=== PATIENT | female | born 1950 | race Caucasian/White ===

== ENCOUNTER 2017-09-04 21:18 | Emergency (ER) | payer MEDICARE, BC ==
--- NOTE | 2017-09-04 22:15 | EDM.PDOC ---
ED HPI GENERAL MEDICAL PROBLEM - General Chief Complaint: Genitourinary Problem Stated Complaint: POSSIBLE UTI Time Seen by Provider: 09/04/17 21:19 Source of Information: Reports: Patient History Limitations: Reports: No Limitations - History of Present Illness INITIAL COMMENTS - FREE TEXT/NARRATIVE: bladder infection; reports pain, urgency, and bladder spasms for the 2 days. last bladder infection was 3 years ago. denies fever or chills. Onset: Gradual Duration: Day(s): (2) Location: Reports: Abdomen Quality: Reports: Same as Previous Episode Improves with: Reports: None Worsens with: Reports: None Associated Symptoms: Reports: Other (dysuria) Bladder Pain Score (Numeric/FACES): 4 - Related Data Allergies Allergy/AdvReac Type Severity Reaction Status Date / Time sulfur Allergy unknown Uncoded 09/04/17 21:33 Home Meds: Home Meds Alendronate [Fosamax] 70 mg PO WEEKLY 09/04/17 [History] Citalopram [Citalopram HBr] 20 mg PO DAILY 09/04/17 [History] Levothyroxine [Sythroid] 100 mcg PO DAILY 09/04/17 [History] Lisinopril 10 mg PO DAILY 09/04/17 [History] Methadone 40 mg PO BID 09/04/17 [History] Simvastatin [Zocor] 40 mg PO BEDTIME 09/04/17 [History] Past Medical History HEENT History: Reports: Impaired Vision Cardiovascular History: Reports: High Cholesterol, Hypertension Genitourinary History: Reports: Other (See Below) Other Genitourinary History: chronic cystitis [employer] History: Reports: Endometriosis, Polycystic Ovaries, Musculoskeletal History: Reports: Arthritis Psychiatric History: Reports: Depression Endocrine/Metabolic History: Reports: Hypothyroidism Dermatologic History: Reports: Eczema - Past Surgical History Female Surgical History: Reports: Hysterectomy, Suprapubic Catheter Placement Social & Family History - Tobacco Use Smoking Status *Q: Never Smoker - Caffeine Use Caffeine Use: Reports: None - Recreational Drug Use Recreational Drug Use: No ED ROS GENERAL - Review of Systems Review Of Systems: See Below Constitutional: Reports: Other (dysuria,) HEENT: Reports: No Symptoms Respiratory: Reports: No Symptoms Cardiovascular: Reports: No Symptoms Endocrine: Reports: No Symptoms GI/Abdominal: Reports: Abdominal Pain : Reports: Dysuria, Frequency, Pain, Urgency Musculoskeletal: Reports: No Symptoms Skin: Reports: No Symptoms Neurological: Reports: No Symptoms Psychiatric: Reports: No Symptoms Hematologic/Lymphatic: Reports: No Symptoms Immunologic: Reports: No Symptoms ED EXAM, GI/ABD - Physical Exam Exam: See Below Exam Limited By: No Limitations General Appearance: Alert, WD/WN, No Apparent Distress Neck: Normal Inspection, Supple Respiratory/Chest: No Respiratory Distress, Lungs Clear, Normal Breath Sounds, No Accessory Muscle Use, Chest Non-Tender Cardiovascular: Regular Rate, Rhythm, No Murmur GI/Abdominal Exam: Normal Bowel Sounds, Soft, Other (pain in pelvis) (Female) Exam: Deferred Rectal (Female) Exam: Deferred Back Exam: Normal Inspection, Full Range of Motion Extremities: Normal Inspection Neurological: Alert, No Motor/Sensory Deficits Psychiatric: Normal Affect, Normal Mood Skin Exam: Warm, Dry, Intact, Normal Color, No Rash Lymphatic: No Adenopathy Course - Vital Signs Last Recorded V/S: Last Vital Signs Temp 36.7 C 09/04/17 21:31 Pulse 66 09/04/17 21:31 Resp 18 09/04/17 21:31 BP 161/68 H 09/04/17 21:31 Pulse Ox 98 09/04/17 21:31 - Orders/Labs/Meds Orders: Active Orders 24 hr Category Date Time Status UA W/MICROSCOPIC [URIN] Urgent Lab 09/04/17 21:24 Ordered Labs: Laboratory Tests 09/04/17 Range/Units 21:24 Urine Color Yellow Urine Appearance Slightly cloudy Urine pH 7.0 (4.5-8.0) Ur Specific [place] 1.010 (1.008-1.030) Urine Protein Negative (NEGATIVE) mg/dL Urine Glucose (UA) Normal (NEGATIVE) mg/dL Urine Ketones Negative (NEGATIVE) mg/dL Urine Occult Blood Large (NEGATIVE) Urine Nitrite Negative (NEGATIVE) Urine Bilirubin Negative (NEGATIVE) Urine Urobilinogen Normal (NORMAL) mg/dL Ur Leukocyte Esterase Large (NEGATIVE) Urine RBC 5-10 H (0-5) Urine WBC 30-40 H (0-5) Ur Epithelial Cells Moderate Amorphous Sediment Not seen Urine Bacteria Many Urine Mucus Not seen Departure - Departure Time of Disposition: 22:20 Disposition: Home, Self-Care 01 Condition: Good Clinical Impression: UTI, Urinary tract infectious disease - Discharge Information Instructions: Urinary Tract Infection, Adult, [id number] Referrals: Rosales Oliver MD [Primary Care Provider] - Forms: ED Department Discharge Care Plan Goals: Urinary Tract Infection -start tonight: Keflex 500mg one in morning and evening til gone -start tonight: Pyrdium 200mg every 8 hours as needed for bladder spasms. -push fluids- water follow up with Primary Care for recheck in 7 to 10 day return to ER for any increased pain, fever, chills, nausea, vomiting or not improved. - Problem List & Annotations (1) UTI, Urinary tract infectious disease SNOMED Code(s): 24531671 Code(s): N39.0 - URINARY TRACT INFECTION, SITE NOT SPECIFIED Status: Acute Priority: High Current Visit: Yes - Problem List Review Problem List Initiated/Reviewed/Updated: Yes - My Orders Last 24 Hours: My Active Orders 09/04/17 21:24 UA W/MICROSCOPIC [URIN] Urgent - Assessment/Plan Last 24 Hours: My Active Orders 09/04/17 21:24 UA W/MICROSCOPIC [URIN] Urgent Plan: Urinary Tract Infection -start tonight: Keflex 500mg one in morning and evening til gone -start tonight: Pyrdium 200mg every 8 hours as needed for bladder spasms. -push fluids- water follow up with Primary Care for recheck in 7 to 10 day return to ER for any increased pain, fever, chills, nausea, vomiting or not improved.
== END 2017-09-04 22:25 | disposition home or self-care (01) ==
LOC: JP.ED 21:18
DX: N39.0 Urinary tract infection, site not specified (principal); I10 Essential (primary) hypertension; E78.00 Pure hypercholesterolemia, unspecified; E03.9 Hypothyroidism, unspecified; M19.90 Unspecified osteoarthritis, unspecified site; Z79.899 Other long term (current) drug therapy; Z88.8 Allergy status to other drugs, medicaments and biological substances
CPT/HCPCS: 81001; 99283

== ENCOUNTER 2018-08-27 06:53 | Inpatient (IN) | payer MEDICARE, BC ==
[2018-08-27] MEDS ORDERED: Meropenem 500 MG SDV ONE (07:05)
[2018-08-27] MEDS ORDERED: Acetaminophen 500 MG Tab PO ONE (07:15)
[2018-08-27] MEDS ORDERED: Succinylcholine 200 MG/10 ML MDV ONE (07:27)
[2018-08-27] MEDS ORDERED: Ondansetron 4 MG/2 ML SDV ONE (07:27)
[2018-08-27] MEDS ORDERED: Glycopyrrolate 0.2 MG/ML 5 ML MDV ONE (07:27)
[2018-08-27] MEDS ORDERED: Rocuronium 50 MG/5 ML Vial ONE ×2 (07:27→07:58)
[2018-08-27] MEDS ORDERED: Propofol 200 MG/20 ML SDV ONE ×2 (07:27→10:58)
[2018-08-27] MEDS ORDERED: Dexamethasone 4 MG/ML SDV ONE (07:27)
[2018-08-27] MEDS ORDERED: Neostigmine Methylsulfate 1 MG/ML 5 ML Syringe ONE (07:27)
[2018-08-27] MEDS ORDERED: fentaNYL 250 MCG/5 ML SDV ONE ×2 (07:28→09:55)
[2018-08-27] MEDS ORDERED: Dextrose 5%-Lactated Ringers 1,000 ML IV SCH (08:00)
[2018-08-27] MEDS ORDERED: HYDROmorphone/Normal Saline 15 MG/30 ML PCA IV PRN (08:15)
[2018-08-27] MEDS ORDERED: Naloxone 0.4 MG/ML SDV IV PRN (08:16)
[2018-08-27] MEDS ORDERED: ceFAZolin 2 GM in Premix Bag 1 BAG IV ONE (09:00)
[2018-08-27] MEDS ORDERED: Mupirocin Oint 22 GM Tube ONE (10:22)
[2018-08-27] MEDS ORDERED: Lactated Ringers 1,000 ML ONE (10:27)
[2018-08-27] MEDS ORDERED: Hypromellose 0.4% Ophth Soln 15 ML Bottle EYEBOTH PRN (12:57)
[2018-08-27] MEDS ORDERED: Ondansetron 4 MG/2 ML SDV IVPUSH PRN (13:44)
[2018-08-27] MEDS ORDERED: Lisinopril 10 MG Tab PO SCH (15:00)
[2018-08-27] MEDS: ceFAZolin 2 GM in Premix Bag 1 BAG IV SCH (16:24)
[2018-08-27] MEDS: Methadone 10 MG Tab PO SCH (20:13)
[2018-08-27] MEDS: Dextrose 5%-Lactated Ringers 1,000 ML IV SCH (20:16)
[2018-08-27] MEDS: Mupirocin Oint 22 GM Tube TOP SCH (20:19)
[2018-08-28] MEDS: ceFAZolin 2 GM in Premix Bag 1 BAG IV SCH ×2 (00:48→08:07)
[2018-08-28] MEDS: Dextrose 5%-Lactated Ringers 1,000 ML IV SCH ×2 (05:20→15:02)
[2018-08-28] MEDS: Methadone 10 MG Tab PO SCH ×2 (08:08→20:59)
[2018-08-28] MEDS: Mupirocin Oint 22 GM Tube TOP SCH ×2 (08:08→21:01)
[2018-08-28] MEDS: Citalopram 20 MG Tab PO SCH (08:09)
[2018-08-28] MEDS: Levothyroxine 100 MCG Tab PO SCH (08:09)
[2018-08-28] MEDS: Aspirin 81 MG Tab.EC PO SCH (08:09)
[2018-08-28] MEDS ORDERED: Lisinopril 10 MG Tab PO SCH (09:00)
[2018-08-28] MEDS ORDERED: Simvastatin 20 MG Tab PO SCH (21:00)
[2018-08-29] MEDS: Dextrose 5%-Lactated Ringers 1,000 ML IV SCH (03:02)
[2018-08-29] MEDS: Levothyroxine 100 MCG Tab PO SCH (07:15)
[2018-08-29] MEDS: Mupirocin Oint 22 GM Tube TOP SCH (08:30)
[2018-08-29] MEDS: Citalopram 20 MG Tab PO SCH (08:30)
[2018-08-29] MEDS: Aspirin 81 MG Tab.EC PO SCH (08:30)
[2018-08-29] MEDS: Methadone 10 MG Tab PO SCH (08:30)
--- NOTE | 2018-08-31 14:30 | PN ---
DATE OF SERVICE: 08/28/2018 The patient has been afebrile with stable vital signs. No major problems were noted overnight. She is doing well with her methadone for pain, and we will discontinue the BR[employer]OM [employer]IPPER. Otherwise, we will keep the patient's ADINA care today, and we will take that operative dressing down tomorrow. She may be ready for discharge home at that time. Brandon Hurd MD /[id number]
--- NOTE | 2018-09-01 09:24 | DISCH ---
FINAL DIAGNOSES: 1. 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 2. Incarcerated umbilical hernia. 3. Subfascial abdominal wall lipoma. 4. History of hypertension. 5. History of hypothyroidism. 6. History of hypertriglyceridemia. 7. History of depression. 8. History of interstitial cystitis. 9. Chronic pain. OPERATIVE PROCEDURES: Done on 08/27/2010: 1. Panniculectomy. 2. Repair of incarcerated umbilical hernia. 3. Excision of subfascial lipoma. SUMMARY: This is a 67-year-old female presenting with increasingly symptomatic abdominal pannus. On her own diet, she has lost around 85 pounds in the last few months, and the pannus is noted to be chronically inflamed and affected by fungal overgrowth. The patient was also noted to have an umbilical hernia. On the day of admission, the patient underwent panniculectomy and repair of incarcerated umbilical hernia. She was also noted to have a 2 cm subfascial lipoma, which was removed concurrently. Postoperatively, she had no significant problems. She will be sent home on her usual medications. She is on methadone for chronic pain, and she will continue this to manage the surgical pain as well, and otherwise the patient will be applying Bactroban ointment around the ADINA drain sites b.i.d., and she will be following up with Faby Magaña at [facility] on Friday, September 07, 2018.
--- NOTE | 2018-09-02 13:35 | OR ---
DATE OF PROCEDURE: 08/27/2018 PREOPERATIVE DIAGNOSES: 1. Chronic panniculitis. 2. Umbilical hernia. POSTOPERATIVE DIAGNOSES: 1. Chronic panniculitis. 2. Incarcerated umbilical hernia. 3. Subfascial abdominal wall lipoma. OPERATIVE PROCEDURES: 1. Panniculectomy (10372). 2. Repair of incarcerated umbilical hernia (11656). 3. Excision of subfascial abdominal wall lipoma (68821). ANESTHESIA: General. [employer]: MICHAELA Vernon3. INDICATION FOR PROCEDURE: This is a 67-year-old presenting with abdominal pannus, which is chronically inflamed and infected, appears to have quite a bit in the way of chronic fungal overgrowth despite the patient maintaining good hygiene and using antifungal creams and such, which is associated with the umbilical hernia as well. The plan is to proceed with a panniculectomy and umbilical hernia repair. The umbilical hernia is small enough that we will not likely need to use any mesh in this case. Potential risks of the procedure including bleeding, infection, recurrence of the hernia, and some cosmetic ill-results were overall reviewed, and the patient wishes to proceed. DETAILS OF PROCEDURE: The patient was taken to the operating room. After general endotracheal anesthesia was induced, a [place] catheter was inserted, and the abdomen was prepped and draped. A wide transversely-oriented elliptical incision was then made, extending from above the hips on each side in a curved orientation. This was carried down through the skin and subcutaneous tissue using the SonoSurg device. Then, the pannus was then reflected off the abdominal wall. Care was taken to spend additional time securing the closure of the perforating vessels underlying the inferior epigastric artery. Once the pannus was approaching the area of umbilicus, this area was undermined and the umbilical hernia was encountered. This contained some preperitoneal fat incarcerated within it. At that point, the specimen was delivered from the field. The umbilical hernia was then closed with a [id number] stitch of #1 Vicryl stitch with the fascial opening being around 5 mm. During the course of the dissection, a 2-cm subfascial lipoma was located in the area above the inguinal region on the left side. This was separately excised and sent as a specimen as well. The area was then irrigated with antibiotic-containing saline solution. Two Stanislaw-Llamas drains were then placed superior to the main incision and closure was then accomplished with a layer of 2-0 Vicryl stitch deep and then lnady for the skin. Drains were affixed with some 3-0 Vicryl stitch. The patient was taken to the recovery room in a satisfactory condition. There were no evident complications. Brandon Hurd MD /[id number]
== END 2018-08-29 10:00 | disposition home or self-care (01) | DRG 580 ==
LOC: JP.SDS 06:53 → JP.SDSSCHI 06:53 → EDSTATUS 09:00 → JP.MS 10:45
PROVIDERS: ADMIT Surgery; ATTEND Surgery
PROC: 0HB7XZZ Excision of Abdomen Skin, External Approach (ICD-10-PCS; principal; 2018-08-27)
PROC: 0WBF0ZX Excision of Abdominal Wall, Open Approach, Diagnostic (ICD-10-PCS; 2018-08-27)
PROC: 0WQF0ZZ Repair Abdominal Wall, Open Approach (ICD-10-PCS; 2018-08-27)
DX: M79.3 Panniculitis, unspecified (principal); K42.0 Umbilical hernia with obstruction, without gangrene; D17.5 Benign lipomatous neoplasm of intra-abdominal organs; I10 Essential (primary) hypertension; E03.9 Hypothyroidism, unspecified; E78.1 Pure hyperglyceridemia; F32.9 Major depressive disorder, single episode, unspecified; G89.29 Other chronic pain; E78.5 Hyperlipidemia, unspecified
CPT/HCPCS: 36415; 80053; 83735; 84100; 85027; 88302; 88304; 94762; A9270-GY; J0171; J0330; J0690; J1100; J1170; J2020; J2185; J2405; J2704; J2710; J2795; J3010; J3490; J7042; J7050; J7120

== ENCOUNTER 2018-09-24 10:21 | Day surgery (SDC) | payer MEDICARE, BC ==
[~2018-09-24 10:21] MED LIST: Bupivacaine 0.5% 50 ML MDV ONE; Dexamethasone 4 MG/ML SDV ONE; Glycopyrrolate 0.2 MG/ML 5 ML MDV ONE; Lidocaine 1% with EPINEPHrine 1:100,000 50 ML MDV ONE; Meropenem 500 MG SDV ONE; Neostigmine Methylsulfate 1 MG/ML 5 ML Syringe ONE; Ondansetron 4 MG/2 ML SDV ONE; Propofol 200 MG/20 ML SDV ONE; Rocuronium 50 MG/5 ML Vial ONE; Succinylcholine 200 MG/10 ML MDV ONE; fentaNYL 250 MCG/5 ML SDV ONE
[2018-09-24] MEDS ORDERED: Dextrose 5%-Lactated Ringers 1,000 ML IV SCH (11:00)
[2018-09-24] MEDS ORDERED: Meropenem 500 MG in Sodium Chloride 0.9% 50 ML IV ONE (11:30)
[2018-09-24] MEDS ORDERED: Linezolid 600 MG in Premix Bag 1 BAG IV ONE (11:30)
[2018-09-24] MEDS ORDERED: Mupirocin Oint 22 GM Tube ONE (14:00)
[2018-09-24] MEDS ORDERED: Propofol 200 MG/20 ML SDV ONE (14:07)
--- NOTE | 2018-10-12 08:56 | OR ---
DATE OF PROCEDURE: 09/24/2018 SURGEON: Brandon Hurd MD PREOPERATIVE DIAGNOSIS: Partially drained seroma and focal open area panniculectomy incision. POSTOPERATIVE DIAGNOSIS: Partially drained seroma and focal open area panniculectomy incision. OPERATIVE PROCEDURES: 1. Drainage of seroma at panniculectomy incision (48962). 2. Re-closure of panniculectomy incision (82736, [id number]). ANESTHESIA: General. INDICATION FOR PROCEDURE: This is a 68-year-old who underwent recent panniculectomy, presenting with area of a partially open wound on the left lateral aspect of the incision associated with what appeared to be at least a poorly draining seroma. Plan is to proceed with exploration of the wound, drainage of the seroma, and reclosure of the wound after irrigation and placement of drains. Potential risks including bleeding, infection, possible inadequate healing of the closure were all reviewed, and the patient wishes to proceed. DETAILS OF PROCEDURE: The patient was taken to the operating room and placed in a supine position. After general endotracheal anesthesia was induced, the abdomen was prepped and draped. The partially opened area in the left lateral aspect of the incision was reopened somewhat further, and the fluid within the cyst was then evacuated with suction. The non- adherent area of the seroma appeared to continue across the midline toward the right side as well. This was not grossly infected. The area was then irrigated with a solution containing meropenem and Zyvox. Two Stanislaw-Llamas drains were then placed; one in the right lateral aspect of the abdomen, and this one was traced across the midline toward the left, second in the left abdomen just above the incision, this tracking toward the right side of the incision. At that point, the incision was then closed with 2 layers of 3-0 Vicryl stitch deep and landy for the skin. The entire length of the reclosed complicated wound was 13.2 cm. Drains were affixed with some 3-0 Vicryl stitch, and the patient taken to the recovery room in satisfactory condition. Brandon Hurd MD /[id number]
== END 2018-09-24 15:50 | disposition home or self-care (01) ==
LOC: JP.SDS 10:21
PROVIDERS: ATTEND Surgery
DX: T81.31XA Disruption of external operation (surgical) wound, not elsewhere classified, initial encounter (principal); L76.34 Postprocedural seroma of skin and subcutaneous tissue following other procedure; I10 Essential (primary) hypertension; E78.5 Hyperlipidemia, unspecified; K21.9 Gastro-esophageal reflux disease without esophagitis; F32.9 Major depressive disorder, single episode, unspecified; Z88.2 Allergy status to sulfonamides; Z88.8 Allergy status to other drugs, medicaments and biological substances
CPT/HCPCS: 10140; 13160; 87070; 87075; 87205; A9270; J2020; J2185; J2704; J3010; J3490; J7042; J7050; J0330; J1100; J2405; J2710

== ENCOUNTER 2022-07-12 17:56 | Emergency (ER) | payer BC, MEDICARE ==
[2022-07-12] MEDS ORDERED: amLODIPine 5 MG Tab PO ONE (18:49)
[2022-07-12] MEDS ORDERED: Amitriptyline 10 MG Tab PO ONE (18:49)
== END 2022-07-12 19:15 | disposition home or self-care (01) ==
LOC: JP.ED 17:56
DX: N30.10 Interstitial cystitis (chronic) without hematuria (principal); I10 Essential (primary) hypertension; E03.9 Hypothyroidism, unspecified; Z88.2 Allergy status to sulfonamides; Z88.8 Allergy status to other drugs, medicaments and biological substances; Z79.82 Long term (current) use of aspirin; Z79.899 Other long term (current) drug therapy
CPT/HCPCS: 81001; 99284; A9270

== ENCOUNTER 2023-10-07 09:19 | Emergency (ER) | payer MEDICARE ==
[2023-10-07] MEDS ORDERED: Sodium Chloride 0.9% 10 ML Syringe FLUSH PRN (10:28)
[2023-10-07] MEDS ORDERED: Iopamidol 612 MG/ML 100 ML Bottle IV PRN (10:28)
[2023-10-07] MEDS ORDERED: Sodium Chloride 0.9% 80 ML IV ONE (10:28)
[2023-10-07 10:36] LABS: BASOPHILS ABSOLUTE AUTO 0.03 K/uL (0.00-0.10); BASOPHILS PERCENT AUTO 0.4 % (0.1-1.3); EOSINOPHILS ABSOLUTE AUTO 0.16 K/uL (0.00-0.40); EOSINOPHILS PERCENT AUTO 2.4 % (0.0-5.4); HEMATOCRIT 35.9 % (34.3-46.0); HEMOGLOBIN 12.3 g/dL (11.2-15.5); IMMATURE GRAN ABSOLUTE AUTO 0.03 K/uL (0.00-0.23); IMMATURE GRAN PERCENT AUTO 0.4 % (0.0-0.7); LYMPHOCYTES ABSOLUTE AUTO 1.63 K/uL (0.8-3.3); LYMPHOCYTES PERCENT AUTO 24.4 % (11.4-47.7); MEAN CORPUSCULAR HEMOGLOBIN 30.2 pg (31.6-35.5); MEAN CORPUSCULAR HGB CONC 34.3 g/dL (31.6-35.5); MEAN CORPUSCULAR VOLUME 88.2 fL (81.4-99.0); MONOCYTES ABSOLUTE AUTO 0.58 K/uL (0.20-0.90); MONOCYTES PERCENT AUTO 8.7 % (3.3-12.6); NEUTROPHILS ABSOLUTE AUTO 4.25 K/uL (1.0-7.6); NEUTROPHILS PERCENT AUTO 63.7 % (40.0-78.1); PLATELET COUNT,PLT 213 K/uL (130-375); RED BLOOD CELL COUNT 4.07 M/uL (3.77-5.24); WHITE BLOOD CELL COUNT,WBC 6.7 K/uL (3.2-11.0)
[2023-10-07 10:50] LABS: CALCIUM 9.1 mg/dL (8.5-10.1); CREATININE 0.8 mg/dL (0.6-1.0); EST CRCL DRUG DOSING (CG) 45.66 mL/min; POTASSIUM,K 3.8 mmol/L (3.6-5.2)
[2023-10-07] MEDS: fentaNYL 100 MCG/2 ML SDV IVPUSH ONE (10:51)
[2023-10-07 10:52] LABS: ANION GAP 11.8 mmol/L (5.0-14.0)
== END 2023-10-07 12:48 | disposition home or self-care (01) ==
LOC: JP.ED 09:19
DX: S22.080A Wedge compression fracture of T11-T12 vertebra, initial encounter for closed fracture (principal); I10 Essential (primary) hypertension; E03.9 Hypothyroidism, unspecified; Z90.710 Acquired absence of both cervix and uterus; Z79.82 Long term (current) use of aspirin; Z79.899 Other long term (current) drug therapy; Z79.890 Hormone replacement therapy; Z88.2 Allergy status to sulfonamides; Z88.8 Allergy status to other drugs, medicaments and biological substances; W11.XXXA Fall on and from ladder, initial encounter
CPT/HCPCS: 36415; 74177; 74177-26; 80048; 85025; 96374; 99283; 99284-25; J3010

== ENCOUNTER 2024-12-13 12:12 | Emergency (ER) | payer MEDICARE ==
[2024-12-13 13:06] LABS: BASOPHILS ABSOLUTE AUTO 0.03 K/uL (0.00-0.10); BASOPHILS PERCENT AUTO 0.3 % (0.1-1.3); EOSINOPHILS ABSOLUTE AUTO 0.05 K/uL (0.00-0.40); EOSINOPHILS PERCENT AUTO 0.6 % (0.0-5.4); IMMATURE GRAN ABSOLUTE AUTO 0.03 K/uL (0.00-0.23); IMMATURE GRAN PERCENT AUTO 0.3 % (0.0-0.7); LYMPHOCYTES ABSOLUTE AUTO 2.11 K/uL (0.8-3.3); LYMPHOCYTES PERCENT AUTO 23.4 % (11.4-47.7); MONOCYTES ABSOLUTE AUTO 0.65 K/uL (0.20-0.90); MONOCYTES PERCENT AUTO 7.2 % (3.3-12.6); NEUTROPHILS ABSOLUTE AUTO 6.14 K/uL (1.0-7.6); NEUTROPHILS PERCENT AUTO 68.2 % (40.0-78.1); PLATELET COUNT,PLT 287 K/uL (130-375); RED BLOOD CELL COUNT 4.36 M/uL (3.77-5.24); WHITE BLOOD CELL COUNT,WBC 9.0 K/uL (3.2-11.0)
[2024-12-13 13:23] LABS: INR 1.0
[2024-12-13 13:26] LABS: A/G RATIO 1.2 (1.2-2.2); ALANINE AMINOTRANSFERASE,ALT 24 U/L (12-78); ASPARTATE AMNIOTRANSFERASE,AST 24 U/L (15-37); BILIRUBIN TOTAL 0.9 mg/dL (0.2-1.0); BLOOD UREA NITROGEN,BUN 14 mg/dL (7-18); CARBON DIOXIDE,CO2 28 mmol/L (21-32); CHLORIDE,CL 104 mmol/L (100-108); CREATININE 0.9 mg/dL (0.6-1.0); EST CRCL DRUG DOSING (CG) 39.99 mL/min; ESTIMATED GFR 68 mL/min (>60); GLUCOSE RANDOM 113 mg/dL (74-106); POTASSIUM,K 4.4 mmol/L (3.6-5.2); PROTEIN TOTAL,TP 7.1 g/dL (6.4-8.2); SODIUM,NA 138 mmol/L (140-148)
== END 2024-12-13 15:12 | disposition home or self-care (01) ==
LOC: JP.ED 12:12
DX: R10.84 Generalized abdominal pain (principal); I10 Essential (primary) hypertension; M19.90 Unspecified osteoarthritis, unspecified site; E78.00 Pure hypercholesterolemia, unspecified; E03.9 Hypothyroidism, unspecified; Z88.2 Allergy status to sulfonamides; Z88.8 Allergy status to other drugs, medicaments and biological substances; Z79.82 Long term (current) use of aspirin; Z79.890 Hormone replacement therapy; Z79.899 Other long term (current) drug therapy; Z90.710 Acquired absence of both cervix and uterus
CPT/HCPCS: 36415; 80053; 83690; 85025; 85610; 99284

== ENCOUNTER 2025-01-19 06:17 | Day surgery (SDC) | payer MEDICARE ==
[~2025-01-19 06:17] MED LIST changes: -Bupivacaine 0.5% 50 ML MDV ONE; -Dexamethasone 4 MG/ML SDV ONE; -Glycopyrrolate 0.2 MG/ML 5 ML MDV ONE; +Indocyanine Green 25 MG SDV IV ONE; -Lidocaine 1% with EPINEPHrine 1:100,000 50 ML MDV ONE; -Meropenem 500 MG SDV ONE; -Neostigmine Methylsulfate 1 MG/ML 5 ML Syringe ONE; -Ondansetron 4 MG/2 ML SDV ONE; -Propofol 200 MG/20 ML SDV ONE; -Rocuronium 50 MG/5 ML Vial ONE; -Succinylcholine 200 MG/10 ML MDV ONE; -fentaNYL 250 MCG/5 ML SDV ONE
[2025-01-19 06:57] LABS: PLATELET COUNT,PLT 269.0 K/uL (130-375); RED BLOOD CELL COUNT 4.39 M/uL (3.77-5.24); WHITE BLOOD CELL COUNT,WBC 9.0 K/uL (3.2-11.0)
[2025-01-19] MEDS: Lactated Ringers 1,000 ML IV SCH (06:58)
[2025-01-19] MEDS: Indocyanine Green 25 MG SDV IV ONE (06:59)
[2025-01-19] MEDS: metroNIDAZOLE/Normal Saline 500 MG in Premix Bag 1 BAG IV ONE (07:04)
[2025-01-19 07:19] LABS: A/G RATIO 1.2 (1.2-2.2); ALANINE AMINOTRANSFERASE,ALT 28 U/L (12-78); ASPARTATE AMNIOTRANSFERASE,AST 26 U/L (15-37); BILIRUBIN TOTAL 0.9 mg/dL (0.2-1.0); BLOOD UREA NITROGEN,BUN 14 mg/dL (7-18); CARBON DIOXIDE,CO2 28 mmol/L (21-32); CHLORIDE,CL 103 mmol/L (100-108); CREATININE 0.9 mg/dL (0.6-1.0); EST CRCL DRUG DOSING (CG) 39.99 mL/min; ESTIMATED GFR 68 mL/min (>60); GLUCOSE RANDOM 109 mg/dL (74-106); POTASSIUM,K 3.8 mmol/L (3.6-5.2); PROTEIN TOTAL,TP 6.9 g/dL (6.4-8.2); SODIUM,NA 139 mmol/L (140-148)
[2025-01-19] MEDS ORDERED: fentaNYL 250 MCG/5 ML SDV ONE ×2 (07:21→08:36)
[2025-01-19] MEDS ORDERED: Propofol 200 MG/20 ML SDV ONE (07:22)
[2025-01-19] MEDS ORDERED: Ondansetron 4 MG/2 ML SDV ONE (07:22)
[2025-01-19] MEDS ORDERED: Dexamethasone 4 MG/ML SDV ONE (07:22)
[2025-01-19] MEDS: fentaNYL 50 MCG/ML SDV IVPUSH ONE (09:41)
[2025-01-19] MEDS: Acetaminophen/HYDROcodone 325-5 MG Tab PO PRN (10:35)
== END 2025-01-19 13:00 | disposition home or self-care (01) ==
LOC: JP.SDS 06:17
PROVIDERS: ATTEND Surgery
DX: K80.10 Calculus of gallbladder with chronic cholecystitis without obstruction (principal); I10 Essential (primary) hypertension; E78.00 Pure hypercholesterolemia, unspecified; E03.9 Hypothyroidism, unspecified; Z79.82 Long term (current) use of aspirin; Z79.899 Other long term (current) drug therapy; Z79.890 Hormone replacement therapy
CPT/HCPCS: 00790; 36415; 47563; 80053; 85027; A9270; J0169; J0690; J1100; J2405; J2704; J2795; J3010; J7120; J0665; J1836; J1920; J3490